=== PATIENT | female | born 1975 | race African-American/Black ===

== ENCOUNTER 2020-12-29 13:34 | Emergency (ER) | payer BC, SELFPAY ==
[2020-12-29 13:59] LABS: Absolute Lymphocytes (CBC) 2.1 K/uL (0.7-4.9); Basophils % 0.6 % (0-1.3); Hematocrit 37.8 % (36.0-45.0); Lymphocytes % 36.2 % (15.3-44.8); MPV 7.8 fL (7.6-11.3); RBC Red Blood Cell Count 4.13 M/uL (3.86-4.86)
[2020-12-29 14:05] LABS: Protime INR 0.9
[2020-12-29 14:25] LABS: ALT/SGPT 23 U/L (12-78); AST/SGOT 15 U/L (15-37); Albumin 3.2 g/dL (3.4-5.0); Alkaline Phosphatase 39 U/L (45-117); BUN Blood Urea Nitrogen 17 mg/dL (7-18); Bicarbonate 27 mmol/L (21-32); Bilirubin Direct < 0.1 mg/dL (0-0.2); Bilirubin Total 0.2 mg/dL (0.2-1.0); Glucose Level 77 mg/dL (74-106); Potassium 3.9 mmol/L (3.5-5.1); Protein, Total 7.2 g/dL (6.4-8.2); Sodium Level 143 mmol/L (136-145)
--- NOTE | 2020-12-29 14:44 | RAD REPORT ---
EXAM DESCRIPTION: RAD - Ankle Right 3 View - 12/29/2020 2:32 pm CLINICAL HISTORY: Pain;Swelling COMPARISON: No comparisons FINDINGS: Oblique fracture of the distal fibula is present with mild surrounding soft tissue swellin g. No dislocation evident. Tiny posterior calcaneal spur.
--- NOTE | 2020-12-29 14:45 | RAD REPORT ---
EXAM DESCRIPTION: RAD - Foot Right 3 View - 12/29/2020 2:32 pm CLINICAL HISTORY: PAIN COMPARISON: No comparisons FINDINGS: Mild hallux valgus deformity is seen with metatarsus primus adductus. Moderate soft tissue swelling is seen along the dorsum the forefoot. Oblique fracture is seen affecting the distal fibula . Tiny posterior calcaneal spur.
[2020-12-29 16:55] LABS: Urine Blood 3+ (NEG); Urine Glucose NEGATIVE (NEG); Urine Protein TRACE (NEG)
[2020-12-29 17:37] LABS: Barbiturates NEGATIVE (NEGATIVE); Benzodiazepines POSITIVE (NEGATIVE); Cocaine POSITIVE (NEGATIVE); METHAMPHETAM NEGATIVE (NEGATIVE); Methadone NEGATIVE (NEGATIVE); Opiates NEGATIVE (NEGATIVE); Phencyclidine NEGATIVE (NEGATIVE); THC Cannibis NEGATIVE (NEGATIVE)
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
--- NOTE | 2020-12-30 10:01 | EKG ---
Test Date: 2020-12-29 Test Time: 15:50:14 Disintegrator: VICKIE MEASUREMENT RESULTS: Intervals: Rate: 78 CT: 152 QRSD: 80 QT: 390 QTc: 444 [place]: P: 55 CT: 152 QRS: 72 T: 24 INTERPRETIVE STATEMENTS: Normal sinus rhythm Normal ECG No previous ECG available for comparison Electronically Signed On 12-30-20 09:59:31 COPYING MACHINE MECHANIC by Joe Syed
[2020-12-30] MEDS ORDERED: SMZ./TMP. 800/160 MG TABLET ONE (10:18)
[2020-12-30 11:11] VITALS: TEMP 97.5
[2020-12-30 11:16] VITALS: BP 130/88; O2SAT 100
== END 2020-12-30 10:56 | disposition home or self-care (01) ==
LOC: ER 13:34
DX: T42.4X2A Poisoning by benzodiazepines, intentional self-harm, initial encounter (principal); S82.64XA Nondisplaced fracture of lateral malleolus of right fibula, initial encounter for closed fracture; Y04.8XXA Assault by other bodily force, initial encounter; F14.10 Cocaine abuse, uncomplicated; F32.9 Major depressive disorder, single episode, unspecified; Z20.822 Contact with and (suspected) exposure to COVID-19
CPT/HCPCS: 36415; 80048; 80076; 80307; 80320; 80329; 81003; 81025; 85025; 85610; 85730; 93005; 99285; U0003